=== PATIENT | male | born 1975 | race Caucasian/White ===

== ENCOUNTER 2024-08-18 13:35 | Emergency (ER) | payer BC ==
--- NOTE | 2024-08-18 14:33 | RAD REPORT ---
EXAMINATION: Femur Right CLINICAL INDICATION: Male, 49 years old. fall;Pain RIGHT COMPARISON: No prior exam. FINDINGS: No acute fracture. No malalignment/dislocation. Mild right acetabular degenerative changes. Other: n/a IMPRESSION: No acute osseous abnormality.
--- NOTE | 2024-08-18 14:34 | RAD REPORT ---
EXAMINATION: XR PELVIS CLINICAL INDICATION: Male, 49 years old. right hip pain TECHNIQUE: Frontal view of the pelvis [id number]. COMPARISON: No prior exam. FINDINGS: No evidence of fracture or dislocation. Normal alignment. No evidence of arthropathy or oth er focal bone lesion. Soft tissues are unremarkable. IMPRESSION: No acute or significant abnormalities.
--- NOTE | 2024-08-18 14:35 | RAD REPORT ---
EXAMINATION: Wrist Right 3 View CLINICAL INDICATION: Male, 49 years old. fall;Pain RIGHT COMPARISON: No prior exam. FINDINGS: Several fracture fragments along the dorsal aspect of the carpus concerning for triquetral fractures. No malalignment/dislocation. No significant focal degenerative change. Other: n/a IMPRESSION: Several fracture fragments along the dorsum of the carpus consistent with a triquetral fracture.
--- NOTE | 2024-08-18 14:37 | RAD REPORT ---
EXAMINATION: Elbow Right 3 View CLINICAL INDICATION: Male, 49 years old. PAIN RIGHT COMPARISON: No prior exam. FINDINGS: Comminuted fracture involving the olecranon. There is likely a segmental component. Evaluation is nelson ited due to positioning of the elbow. No significant focal degenerative change. Other: Soft tissue swelling. IMPRESSION: Comminuted fracture of the olecranon.
--- NOTE | 2024-08-18 16:46 | EDPHYS ---
Physician Documentation [facility] Name: Ori Kimbrough Age: 49 yrs Sex: Male : 1975 Arrival Date: 08/18/2024 Time: 13:35 Bed 18 Private MD: ED Physician Harshal Cannon HPI: 08/18 13:50 This 49 yrs old Male presents to ER via EMS with complaints of Fall Injury, Elbow cp Injury. 13:50 Details of fall: The patient fell from a height, from a ladder, approximately 4 feet. cp Onset: The symptoms/episode began/occurred just prior to arrival. 13:50 Associated injuries: The patient sustained right elbow and right wrist, decreased range cp of motion, deformity, obvious fracture, right hip, painful injury. 13:50 Patient denies LOC. cp Historical: - Allergies: 13:36 Tape; ll1 - PMHx: 13:36 Hypertensive disorder; Hypercholesterolemia; ll1 - PSHx: 13:36 B ankle surgery; ll1 - Immunization history:: Adult Immunizations up to date. - Infectious Disease History:: Denies. - Immunization history: Last tetanus immunization: - up to date. - Social history:: Smoking status: Patient denies any tobacco usage or history of. ROS: 13:55 Constitutional: Negative for body aches, chills, fever, poor PO intake, cp 13:55 Cardiovascular: Negative for chest pain, edema, palpitations, cp 13:55 Respiratory: Negative for cough, shortness of breath, wheezing, 13:55 MS/extremity: Positive for abrasion, decreased range of motion, deformity, pain, swelling, tenderness, of the right elbow, 13:55 Neuro: Negative for altered mental status, dizziness, headache, loss of consciousness, syncope, weakness, 13:55 All other systems are negative, cp Exam: 14:00 Constitutional: The patient appears in no acute distress, alert, awake, cp non-diaphoretic, non-toxic, well developed, well nourished, uncomfortable, 14:00 Head/Face: Normocephalic, atraumatic. cp 14:00 Neck: C-spine: vertebral tenderness, is not appreciated, crepitus, is not appreciated, ROM/movement: is normal, is supple, without pain, no range of motions limitations, 14:00 Chest/axilla: Inspection: normal, Palpation: is normal, no crepitus, no tenderness, 14:00 Cardiovascular: Rate: normal, Rhythm: regular, Edema: is not appreciated, JVD: is not appreciated, 14:00 Respiratory: the patient does not display signs of respiratory distress, Respirations: normal, no use of accessory muscles, no retractions, labored breathing, is not present, Breath sounds: are clear throughout, no decreased breath sounds, no stridor, no wheezing, 14:00 Abdomen/GI: Inspection: abdomen appears normal, Palpation: abdomen is soft and non-tender, in all quadrants, 14:00 Back: pain, is absent, ROM is normal, 14:00 Musculoskeletal/extremity: Extremities: noted in the right elbow: decreased ROM, deformity, pain, posterior side superficial abrasions, moderate swelling, decreased ROM, noted in the right wrist: dorsal side swelling and tenderness to palpation, pain with passive ROM, no evidence of decreased ROM, deformity, noted in the right hip: pain, tenderness, pain with passive ROM, Pulses: noted to be 2+ in the right radial artery, the right hand, right arm and right leg Sensation intact. 14:00 Neuro: Orientation: to person, place \T\ time. Mentation: is normal, Vital Signs: 13:37 BP 129 / 78; Pulse 73; Resp 17; Temp 98; Pulse Ox 100% ; Weight 111.13 kg; Height 5 ft. ll1 10 in. ; Pain 6/10; 17:20 BP 129 / 75; Pulse 81; Resp 16; Pulse Ox 99% ; ll1 13:37 Body Mass Index 35.15 (111.13 kg, 177.8 cm) ll1 13:37 Pain Scale: Adult ll1 Barnett Coma Score: 14:36 Eye Response: spontaneous(4). Motor Response: obeys commands(6). Verbal Response: ll1 oriented(5). Total: 15. Trauma Score (Adult): 14:36 Eye Response: spontaneous(1); Verbal Response: oriented(1); Motor Response: obeys ll1 commands(2); Systolic BP: > 89 mm Hg(4); Respiratory Rate: 10 to 29 per min(4); Barnett Score: 15; Trauma Score: 12 Procedures: 17:10 Splinting: Splint applied to right elbow and right wrist using Orthoglass splint, cp sling, applied by tech. Examined by me, post splint application: neurovascular intact, Patient tolerated well. MDM: 13:36 Medical Screening Exam initiated cp 16:45 Data reviewed: vital signs, nurses notes, radiologic studies, plain films, and as a cp result, I will discharge patient. 16:45 Differential diagnosis: closed head injury, contusion, fracture, laceration, multiple cp trauma. I considered the following discharge prescriptions or medication management in the emergency department Medications were administered in the Emergency Department. See MAR. Care significantly affected by the following chronic conditions: Hypertension. Counseling: I had a detailed discussion with the patient and/or guardian regarding the historical points, exam findings, and any diagnostic results supporting the discharge/admit diagnosis, radiology results, the need for outpatient follow up, for definitive care, a orthopedic surgeon, to return to the emergency department if symptoms worsen or persist or if there are any questions or concerns that arise at home. Response to treatment: the patient's symptoms have mildly improved after treatment, and as a result, I will discharge patient. 08/18 13:49 Order name: XRAY Elbow RIGHT 3 view; Complete Time: 14:38 cp 08/18 14:38 Interpretation: Report reviewed. 08/18 13:49 Order name: XRAY Pelvis; Complete Time: 14:38 cp 08/18 13:49 Order name: XRAY Femur RIGHT; Complete Time: 14:38 cp 08/18 14:10 Order name: XRAY Wrist RIGHT 3 view; Complete Time: 14:38 08/18 14:39 Interpretation: Report reviewed. 08/18 13:49 Order name: IV; Complete Time: 14:03 cp 08/18 14:59 Order name: Splint - Wrist: posterior dorsal hand to forearm; Complete Time: 16:46 cp 08/18 14:59 Order name: Sling; Complete Time: 16:45 cp 08/18 14:59 Order name: Splint - Elbow - Posterior; Complete Time: 16:45 cp 08/18 15:32 Order name: Wound dressing; Complete Time: 16:45 cp Administered Medications: 14:35 Drug: fentaNYL (PF) IVP 25 mcg IVP once {Note: RASS 0, pain 6/10.} Route: IVP; Site: ll1 left antecubital; 15:50 Follow up: Response: No adverse reaction; Pain is decreased; RASS: Alert and Calm (0) ll1 15:54 Drug: fentaNYL (PF) IVP 25 mcg IVP once {Note: RASS 0, pain 5/10.} Route: IVP; Site: ll1 left antecubital; 17:19 Follow up: Response: No adverse reaction; Pain is decreased; RASS: Alert and Calm (0) ll1 Disposition: 08/19 17:09 Chart complete. cp Disposition Summary: 08/18/24 16:45 Discharge Ordered Notes: Location: Home cp Problem: new cp Symptoms: have improved cp Condition: Stable cp Diagnosis - Right Elbow Comminuted Olecranon Fracture cp - Right Wrist Triquetral Fracture cp Followup: cp - With: Private Physician - When: 5 - 6 days - Reason: Orthopedist who specializes in Upper extremity fractures Discharge Instructions: - Discharge Summary Sheet cp - Elbow Fracture Treated With ORIF cp - Wrist Fracture Treated With Immobilization cp - Hip Pain cp Forms: - Medication Reconciliation Form cp - Antibiotic Education cp - Prescription Opioid Use cp - Patient Portal Instructions cp - Leadership Thank You Letter cp Prescriptions: - acetaminophen-codeine 300-30 mg Oral tablet - take 1 tablet ORAL route every 8 hours as needed for pain; 20 tablet; Refills: cp 0, Product Selection Permitted - Anaprox DS 550 mg Oral Tablet - take 1 tablet ORAL route every 12 hours As needed; 20 tablet; Refills: 0, cp Product Selection Permitted Addendum: 17:52 I was immediately available for consultation during this patient's visit. I did not e c2 personally see the patient or discuss the patient with the JEWELL. . Signatures: Dispatcher [employer] EDMS Gavin Blanco PA PA cp Lewis, Lynsay RN RN ll1 Harshal Cannon MD MD ec2 Corrections: (The following items were deleted from the chart) 08/18 13:49 13:49 Femur Right+[id number] ordered. EDID EDMS
--- NOTE | 2024-08-18 16:46 | ER ---
Nurse's Notes [facility] Name: Ori Kimbrough Age: 49 yrs Sex: Male : 1975 Arrival Date: 08/18/2024 Time: 13:35 Bed 18 Private MD: Diagnosis: Right Elbow Comminuted Olecranon Fracture;Right Wrist Triquetral Fracture Presentation: 08/18 13:37 Chief complaint: EMS states: VSS. Tylenol 1 GM PO given. Coronavirus screen: Client ll1 denies travel out of the [place] in the last 14 days. At this time, the client does not indicate any symptoms associated with coronavirus-19. Ebola Screen: Patient denies travel to an Ebola-affected area in the 21 days before illness onset. Initial Sepsis Screen: Does the patient meet any 2 criteria? No. Patient's initial sepsis screen is negative. Does the patient have a suspected source of infection? No. Patient's initial sepsis screen is negative. Risk Assessment: Do you want to hurt yourself or someone else? Patient reports no desire to harm self or others. Onset of symptoms was August 18, 2024. 13:37 Method Of Arrival: EMS: [place] [id number] 13:37 Acuity: ANTONY 3 ll1 14:37 Care prior to arrival: Tylenol in route. Mechanism of Injury: No Mechanism of Injury. ll1 Trauma event details: Injury occurred in the [facility]. Triage Assessment: 13:38 General: Appears uncomfortable, Behavior is calm, cooperative, appropriate for age. ll1 Pain: Complains of pain in R elbow. Musculoskeletal: Circulation, motion, and sensation intact. Capillary refill < 3 seconds, Reports pain in R elbow. Trauma Activation: Not Applicable Physician: ED Physician; Name: ; Notified At: ; Arrived At: Physician: General Surgeon; Name: ; Notified At: ; Arrived At: Physician: Radiology; Name: ; Notified At: ; Arrived At: Physician: Respiratory; Name: ; Notified At: ; Arrived At: Physician: Lab; Name: ; Notified At: ; Arrived At: Historical: - Allergies: 13:36 Tape; ll1 - PMHx: 13:36 Hypertensive disorder; Hypercholesterolemia; ll1 - PSHx: 13:36 B ankle surgery; ll1 - Immunization history:: Adult Immunizations up to date. - Infectious Disease History:: Denies. - Immunization history: Last tetanus immunization: - up to date. - Social history:: Smoking status: Patient denies any tobacco usage or history of. Screenin:35 [facility] ED Fall Risk Assessment (Adult) History of falling in the last 3 months, ll1 including since admission Yes- single mechanical fall (1 pt) Confusion or Disorientation No (0 pts) Intoxicated or Sedated No (0 pts) Impaired Gait No (0 pts) Mobility Assist Device Used No (0 pt) Altered Elimination No (0 pt) Score/Fall Risk Level 0 - 2 = Low Risk Maintained a safe environment, Hourly rounding (assess needs \T\ fall precautionary measures) done. Abuse screen: Denies threats or abuse. Nutritional screening: No deficits noted. Tuberculosis screening: No symptoms or risk factors identified. Primary Survey: 14:36 NO uncontrolled hemorrhage observed. A: The client is awake and alert. The airway is ll1 patent. Breathing/Chest: Spontaneous respiratory effort, equal unlabored respirations, breath sounds clear bilaterally, regular pattern, symmetrical chest rise and fall. Circulation: No external hemorrhage present. Regular and strong central pulse, skin warm/dry/normal color. Disability Client is alert. Exposure/Environment: There is no evidence of uncontrolled external bleeding. 17:18 Reassessment Breathing: Spontaneous respiratory effort, equal unlabored respirations, ll1 breath sounds clear bilaterally, regular pattern with symmetrical chest rise and fall. Assessment: 14:35 Reassessment: No changes from previously documented assessment. Patient and/or family ll1 updated on plan of care and expected duration. Pain level reassessed. Patient is alert, oriented x 3, equal unlabored respirations, skin warm/dry/pink. 15:55 Reassessment: No changes from previously documented assessment. Patient and/or family ll1 updated on plan of care and expected duration. Pain level reassessed. Patient is alert, oriented x 3, equal unlabored respirations, skin warm/dry/pink. 16:45 Reassessment: No changes from previously documented assessment. Patient and/or family ll1 updated on plan of care and expected duration. Pain level reassessed. Patient is alert, oriented x 3, equal unlabored respirations, skin warm/dry/pink. 17:15 Musculoskeletal: Circulation, motion, and sensation intact. Capillary refill < 3 ll1 seconds, in right fingers. 17:17 Reassessment: No changes from previously documented assessment. Patient and/or family ll1 updated on plan of care and expected duration. Pain level reassessed. Patient is alert, oriented x 3, equal unlabored respirations, skin warm/dry/pink. Vital Signs: 13:37 BP 129 / 78; Pulse 73; Resp 17; Temp 98; Pulse Ox 100% ; Weight 111.13 kg; Height 5 ft. ll1 10 in. ; Pain 6/10; 17:20 BP 129 / 75; Pulse 81; Resp 16; Pulse Ox 99% ; ll1 13:37 Body Mass Index 35.15 (111.13 kg, 177.8 cm) ll1 13:37 Pain Scale: Adult ll1 Deloris Coma Score: 14:36 Eye Response: spontaneous(4). Motor Response: obeys commands(6). Verbal Response: ll1 oriented(5). Total: 15. Trauma Score (Adult): 14:36 Eye Response: spontaneous(1); Verbal Response: oriented(1); Motor Response: obeys ll1 commands(2); Systolic BP: > 89 mm Hg(4); Respiratory Rate: 10 to 29 per min(4); Deloris Score: 15; Trauma Score: 12 ED Course: 13:36 Patient arrived in ED. ll1 13:36 Gavin Blanco PA is PHCP. cp 13:36 Harshal Cannon MD is Attending Physician. cp 13:36 Arm band placed on Patient placed in an exam room, on a stretcher. ll1 13:38 Triage completed. ll1 14:03 Manuleito Vera, RN is Primary Nurse. ll1 14:30 XRAY Elbow RIGHT 3 view In Process Unspecified. EDMS 14:30 XRAY Pelvis In Process Unspecified. EDMS 14:30 XRAY Femur RIGHT In Process Unspecified. EDMS 14:30 Inserted saline lock: 22 gauge in right antecubital area, using aseptic technique. ll1 Flushed with 10 mL NS. 14:31 XRAY Wrist RIGHT 3 view In Process Unspecified. EDMS 14:36 Patient has correct armband on for positive identification. Bed in low position. ll1 Provided Education on: ER procedures and process. Cardiac monitoring not applicable on this patient. 14:37 Patient maintains SpO2 saturation greater than 95% on room air. ll1 16:45 Orthoglass splint: posterior long arm splint applied to the right arm. Volar splint em1 applied on right arm Sling applied to right arm. 17:18 No provider procedures requiring assistance completed. IV discontinued, intact, ll1 bleeding controlled, No redness/swelling at site. Pressure dressing applied. 17:19 Thermoregulation: n/a. ll1 Administered Medications: 14:35 Drug: fentaNYL (PF) IVP 25 mcg IVP once {Note: RASS 0, pain 6/10.} Route: IVP; Site: ll1 left antecubital; 15:50 Follow up: Response: No adverse reaction; Pain is decreased; RASS: Alert and Calm (0) ll1 15:54 Drug: fentaNYL (PF) IVP 25 mcg IVP once {Note: RASS 0, pain 5/10.} Route: IVP; Site: ll1 left antecubital; 17:19 Follow up: Response: No adverse reaction; Pain is decreased; RASS: Alert and Calm (0) ll1 Medication: 14:37 VIS not applicable for this client. ll1 Intake: 17:19 PO: 0ml; Total: 0ml. ll1 Output: 17:19 Urine: 0ml; Total: 0ml. ll1 Outcome: 16:45 Discharge ordered by . jun 17:12 Patient left the ED. ll1 17:18 Discharged to home via wheelchair, ll1 17:18 Condition: stable 17:18 Discharge instructions given to patient, Instructed on discharge instructions, follow up and referral plans. no drinking with medication, no driving heavy equipment, medication usage, Demonstrated understanding of instructions, follow-up care, medications, splint care, Prescriptions given X 2, 17:19 Patient's length of stay was not longer than 2 hours. ll1 Signatures: Dispatcher [employer] Mynor Plasencia em1 Gavin Blanco PA PA cp Lewis, Lynsay RN RN ll1
[2024-08-18 17:30] VITALS: BP 129/78; TEMP 98; O2SAT 100
== END 2024-08-18 17:12 | disposition home or self-care (01) ==
LOC: ER 13:35
PROC: 2W3AX1Z Immobilization of Right Upper Arm using Splint (ICD-10-PCS; principal; 2024-08-18)
PROC: 2W3CX1Z Immobilization of Right Lower Arm using Splint (ICD-10-PCS; 2024-08-18)
DX: S52.021A Displaced fracture of olecranon process without intraarticular extension of right ulna, initial encounter for closed fracture (principal); S62.111A Displaced fracture of triquetrum [cuneiform] bone, right wrist, initial encounter for closed fracture; W11.XXXA Fall on and from ladder, initial encounter
CPT/HCPCS: 72170; 96374; 99285